=== PATIENT | female | born 1960 | race Caucasian/White ===

== ENCOUNTER 2018-04-25 12:12 | Inpatient (IN) ==
[2018-04-25] MEDS ORDERED: *HR* HYDROmorphone (PF) 1 MG/ML SYRINGE IVP ONE ×2 (13:00→16:04)
[2018-04-25] MEDS ORDERED: 0.9 % Sodium Chloride 1,000 ML IVC ONE ×2 (13:00→16:08)
[2018-04-25] MEDS ORDERED: Isovue-370 500 ML INFUS..BTL IV ONE (13:00)
[2018-04-25] MEDS ORDERED: Ondansetron 4 MG/2 ML VIAL IVP ONE (13:00)
--- NOTE | 2018-04-25 13:08 | Electrocardiograph Report ---
[facility] Test Date: 2018-04-25 Pat Name: Eli Diamond Department: [id number] Room: Gender: F [employer]: : 1960 Requested By: [id number] Order Number: [id number] Reading MD: Paul French Measurements Intervals [place] Rate: 103 P: 30 OR: 129 QRS: 71 QRSD: 85 T: 34 QT: 334 QTc: 438 Interpretive Statements Sinus tachycardia Low voltage, precordial leads Electronically Signed On 04-25-2018 13:06:00 EDT by aPul French
[2018-04-25 13:18] LABS: Basophils # 0.1 K/mcL (0.0-0.2); Basophils % 0.5 %; Eosinophils # 0.1 K/mcL (0.0-0.6); Eosinophils % 0.3 %; Hematocrit 40.2 % (35.3-44.9); Hemoglobin 13.7 g/dL (11.5-15.4); Immature Granulocytes % 2.5 % (0-4); Lymphocytes # 3.8 K/mcL (0.6-4.6); Mean Corpuscular HGB Conc 34.1 g/dL (31.6-35.5); Mean Corpuscular Hemoglobin 31.1 pg (28.0-33.3); Mean Corpuscular Volume 91.4 fL (83.0-100.0); Mean Platelet Volume 9.1 fL (9.4-12.4); Monocytes # 1.5 K/mcL (0.0-1.3); Monocytes % 7.3 %; Neutrophils # 14.9 K/mcL (1.6-8.9); Nucleated Red Blood Cells 0.1 /100 WBC (0); Platelet Count 487 K/mcL (140-400); Red Cell Distribution Width 15.9 % (11.5-14.5); Segmented Neutrophils % 71.4 %
--- NOTE | 2018-04-25 13:23 | Emergency Department Note ---
Disposition Clinical Impression: Pancreatitis Qualifiers: Chronicity: acute Pancreatitis type: unspecified pancreatitis type Acute pancreatitis complication: unspecified Qualified Code(s): K85.90 - Acute pancreatitis without necrosis or infection, unspecified Disposition: Admitted As Inpatient Condition: Good Referrals: Ari Alaniz DO [Primary Care Provider] - Forms: ED Satisfaction Letter, Work/School Release Abdominal Pain HPI - General Chief Complaint: ED Abdominal Pain Stated Complaint: ABD Pain x 2 days Time Seen by Provider: 04/25/18 12:46 Source: patient Mode of arrival: ambulatory Limitations: no limitations Nursing Notes Reviewed: Yes Vital Signs Reviewed: Yes - History of Present Illness HPI Narrative: Patient presents to the emergency department today for evaluation of abdominal pain, nausea, vomiting. Patient has a past mental history including a diagnosis of Salmonella 2 months ago. Patient states that at this time she had significant amounts of diarrhea as well as abdominal pain and cramping and decreased appetite. She was treated with antibiotics and the symptoms did seem to improve. Patient states the last 2 days she started to have increasing epigastric as well as left upper quadrant abdominal pain. Patient states that she has had worsening symptoms with food. Patient has had nausea with multiple episodes of vomiting. Nonbloody nonbilious. The patient states that she has not had any recurrence of her diarrhea. She has had a previous hysterectomy as well as in the past. No previous cholecystectomy or appendectomy. Pain Scale: 8 - Related Data Home Medications Medication Instructions Recorded Confirmed Ergocalciferol (VITAMIN D2) 50,000 unit PO QWEEK 06/13/16 07/13/16 [Vitamin D2] Gabapentin [Neurontin] 800 mg PO TID 06/13/16 07/13/16 Ibuprofen [Motrin] 800 mg PO BID 06/13/16 07/13/16 OxyCODONE/APAP 5/325 [Percocet 1 tab PO Q6HR PRN 06/13/16 07/13/16 5/325 MG] Solifenacin Succinate [Vesicare] 5 mg PO DAILY 06/13/16 07/13/16 Lisinopril [Zestril] 5 mg PO DAILY 07/13/16 07/13/16 hydroCHLOROthiazide 12.5 mg PO DAILY 07/13/16 07/13/16 [Hydrochlorothiazide] Amoxicillin/Clavulanate [Augmentin] 875 mg PO BIDWM 04/25/18 04/25/18 L.acidoph,Paracasei, B.lactis 1 cap PO DAILY 04/25/18 04/25/18 [Probiotic] MethylPREDNISolone 4 mg PO AD 04/25/18 04/25/18 [MethylPREDNISolone Dose Pack] Potassium Chloride [Klor-Con 10] 10 meq PO BID 04/25/18 04/25/18 Previous Rx's Medication Instructions Recorded Ondansetron ODT [Zofran ODT] 4 mg SL Q6HR #10 tab.rapdis 11/15/17 Allergies Allergy/AdvReac Type Severity Reaction Status Date / Time adhesive tape Allergy Hives Verified 11/15/17 16:35 azithromycin [From Zithromax] Allergy Hives Verified 11/15/17 16:35 cephalexin [From Keflex] Allergy Hives Verified 11/15/17 16:35 Erythromycin Base Allergy Swelling Verified 11/15/17 16:35 of Lip/Tongue/Throat Tetracycline AdvReac Gastrointestinal Verified 11/15/17 16:35 Upset Review of Systems: CONSTITUTIONAL: Weakness and fatigue No weight loss, fever, chills HEENT: Eyes: No visual changes. Ears, Nose, Throat: No hearing loss, difficulty talking or unable to swallow. SKIN: No rash or itching. CARDIOVASCULAR: No chest pain, chest pressure or chest discomfort. No palpitations or edema. RESPIRATORY: No shortness of breath, cough or sputum. GASTROINTESTINAL: Abdominal pain with nausea and vomiting. No diarrhea no blood in her stool. N GENITOURINARY: No burning on urination or hematuria. NEUROLOGICAL: No headache, dizziness, syncope, paralysis, ataxia, numbness or tingling in the extremities. No change in bowel or bladder control. MUSCULOSKELETAL: Generalized body aches Abdominal Pain PMH - Past Medical History Medical history: Reports: asthma, hyperlipidemia, hypertension, kidney stones, RA Female Surgical History: Reports: , hysterectomy, orthopedic, other Psychiatric history: Reports: anxiety, depression - Social History Smoking status: Never smoker Alcohol use: Reports: none Drug use: Reports: none Physical Exam General: Patient in discomfort secondary to abdominal pain. Head: Normocephalic Atraumatic Eyes: PERRL, EOMI ENT: Airway patent, no stridor Neck: supple Chest: Lungs clear to auscultation bilateral Cardiac: Regular rhythm Abdomen: soft, tenderness to the epigastric and left upper quadrant region. Patient also has tenderness to the lower abdomen. Guarding to epigastric tenderness. No rebound or CVA tenderness. Musculoskeletal: Generalized pain including the trapezius and generalized back pain Skin: No rash, normal skin tone Neuro: Awake alert and appropriate, conversational. - General Limitations: no limitations General appearance: alert, in no apparent distress Course - Reevaluation(s) Reevaluation #1: Blood work shows an elevated lipase. Significantly elevated white blood cell count. CT scan shows pancreatitis with a large gallbladder. Possible stone. Ultrasound ordered. Patient will be given more pain and nausea medicine as she continues to remain uncomfortable. Patient will be admitted to the hospital service for further evaluation and treatment. Patient does not have elevated bilirubin or hepatic panel. Patient does not have a Ryan sign or specific tenderness to right upper quadrant. - Consultations Consultation #1: Discussed with hospitalist. Pain medications and fluids have been ordered. Ultrasound of the gallbladder has been ordered but will need to be followed up on. Vital Signs Temperature 98.5 F 04/25/18 12:16 Pulse Rate 113 04/25/18 12:16 Respiratory Rate 16 04/25/18 12:16 Blood Pressure 138/91 04/25/18 12:16 O2 Sat by Pulse Oximetry 99 04/25/18 12:16 Temperature 98.5 F 04/25/18 12:31 Pulse Rate 94 04/25/18 14:41 Respiratory Rate 14 04/25/18 14:41 Blood Pressure 125/86 04/25/18 14:41 O2 Sat by Pulse Oximetry 99 04/25/18 14:41 Oxygen Delivery Oxygen Delivery Room Air Abdominal Pain - Lab Data Result diagrams: 04/25/18 12:47 04/25/18 12:47 Lab Results 04/25/18 04/25/18 04/25/18 Range/Units 12:47 12:47 12:47 WBC 20.9 H (4.3-11.1) K/mcL RBC 4.40 (3.82-4.97) M/mcL Hgb 13.7 (11.5-15.4) g/dL Hct 40.2 (35.3-44.9) % MCV 91.4 (83.0-100.0) fL MCH 31.1 (28.0-33.3) pg MCHC 34.1 (31.6-35.5) g/dL RDW 15.9 H (11.5-14.5) % Plt Count 487 H (140-400) K/mcL MPV 9.1 L (9.4-12.4) fL Immature Gran % 2.5 (0-4) % Seg Neutrophils % 71.4 % Lymphocytes % 18.0 % Monocytes % 7.3 % Eosinophils % 0.3 % Basophils % 0.5 % Neutrophils # 14.9 H (1.6-8.9) K/mcL Lymphocytes # 3.8 (0.6-4.6) K/mcL Monocytes # 1.5 H (0.0-1.3) K/mcL Eosinophils # 0.1 (0.0-0.6) K/mcL Basophils # 0.1 (0.0-0.2) K/mcL Nucleated RBCs/100 WBC 0.1 H (0) /100 WBC Sodium 137 (136-145) mEq/L Potassium 3.6 (3.5-5.1) mEq/L Chloride 105 (98-107) mEq/L Carbon Dioxide 25 (23-29) mEq/L BUN 18 (6-20) mg/dL Creatinine 0.68 (0.60-1.20) mg/dL Est GFR ( Amer) > 60 (> 60) Est GFR (Non-Af Amer) > 60 (> 60) BUN/Creatinine Ratio 26 (6-26) Glucose 112 H (70-105) mg/dL Calculated Osmolality 287 (280-300) Lactic Acid 1.7 (0.5-2.2) mmol/L Calcium 11.7 H (8.6-10.3) mg/dL Total Bilirubin 0.5 (0.3-1.0) mg/dL Direct Bilirubin 0.1 (0.0-0.2) mg/dL Indirect Bilirubin 0.4 (0.0-1.2) mg/dL AST 11 L (13-39) Units/L ALT 9 (7-52) Units/L Alkaline Phosphatase 78 (34-104) Units/L Serum Total Protein 6.8 (6.4-8.9) g/dL Albumin 4.5 (3.5-5.7) g/dL Globulin 2.3 L (2.4-3.5) g/dL Albumin/Globulin Ratio 2.0 (1.1-2.2) Lipase 266 H (11-82) Units/L Urine Color (Yellow) Urine Clarity (Clear) Urine pH (5.0-8.0) pH Units Ur Specific [place] (1.010-1.025) Urine Protein (Neg-Trace) mg/dL Urine Glucose (UA) (Normal) mg/dL Urine Ketones (Negative) mg/dL Urine Blood (Negative) Urine Nitrite (Negative) Urine Bilirubin (Negative) Urine Urobilinogen (Normal) mg/dL Ur Leukocyte Esterase (Negative) Ur Culture Indicated? (NO) 04/25/18 Range/Units 15:31 WBC (4.3-11.1) K/mcL RBC (3.82-4.97) M/mcL Hgb (11.5-15.4) g/dL Hct (35.3-44.9) % MCV (83.0-100.0) fL MCH (28.0-33.3) pg MCHC (31.6-35.5) g/dL RDW (11.5-14.5) % Plt Count (140-400) K/mcL MPV (9.4-12.4) fL Immature Gran % (0-4) % Seg Neutrophils % % Lymphocytes % % Monocytes % % Eosinophils % % Basophils % % Neutrophils # (1.6-8.9) K/mcL Lymphocytes # (0.6-4.6) K/mcL Monocytes # (0.0-1.3) K/mcL Eosinophils # (0.0-0.6) K/mcL Basophils # (0.0-0.2) K/mcL Nucleated RBCs/100 WBC (0) /100 WBC Sodium (136-145) mEq/L Potassium (3.5-5.1) mEq/L Chloride (98-107) mEq/L Carbon Dioxide (23-29) mEq/L BUN (6-20) mg/dL Creatinine (0.60-1.20) mg/dL Est GFR ( Amer) (> 60) Est GFR (Non-Af Amer) (> 60) BUN/Creatinine Ratio (6-26) Glucose (70-105) mg/dL Calculated Osmolality (280-300) Lactic Acid (0.5-2.2) mmol/L Calcium (8.6-10.3) mg/dL Total Bilirubin (0.3-1.0) mg/dL Direct Bilirubin (0.0-0.2) mg/dL Indirect Bilirubin (0.0-1.2) mg/dL AST (13-39) Units/L ALT (7-52) Units/L Alkaline Phosphatase (34-104) Units/L Serum Total Protein (6.4-8.9) g/dL Albumin (3.5-5.7) g/dL Globulin (2.4-3.5) g/dL Albumin/Globulin Ratio (1.1-2.2) Lipase (11-82) Units/L Urine Color Yellow (Yellow) Urine Clarity Clear (Clear) Urine pH 6.5 (5.0-8.0) pH Units Ur Specific [place] > 1.030 H (1.010-1.025) Urine Protein Negative (Neg-Trace) mg/dL Urine Glucose (UA) Normal (Normal) mg/dL Urine Ketones Negative (Negative) mg/dL Urine Blood Negative (Negative) Urine Nitrite Negative (Negative) Urine Bilirubin Negative (Negative) Urine Urobilinogen Normal (Normal) mg/dL Ur Leukocyte Esterase Negative (Negative) Ur Culture Indicated? NO (NO)
[2018-04-25 13:36] LABS: Alanine Aminotransferase 9 Units/L (7-52); Albumin 4.5 g/dL (3.5-5.7); Alkaline Phosphatase 78 Units/L (34-104); Aspartate Amino Transferase 11 Units/L (13-39); BUN/Creatinine Ratio 26 (6-26); Bilirubin,Direct 0.1 mg/dL (0.0-0.2); Bilirubin,Indirect 0.4 mg/dL (0.0-1.2); Bilirubin,Total 0.5 mg/dL (0.3-1.0); Blood Urea Nitrogen 18 mg/dL (6-20); Calcium 11.7 mg/dL (8.6-10.3); Carbon Dioxide 25 mEq/L (23-29); Chloride 105 mEq/L (98-107); Globulin 2.3 g/dL (2.4-3.5); Glucose 112 mg/dL (70-105); Lipase 266 Units/L (11-82); Osmolality,Calculated 287 (280-300); Potassium 3.6 mEq/L (3.5-5.1); Sodium 137 mEq/L (136-145); Total Protein 6.8 g/dL (6.4-8.9); eGFR For Non-African Americans > 60 (> 60)
[2018-04-25 15:42] LABS: Bilirubin,Urine Negative (Negative); Blood,Urine Negative (Negative); Clarity,Urine Clear (Clear); Color,Urine Yellow (Yellow); Glucose,Urine (UA) Normal (Normal); Ketones,Urine Negative (Negative); Leukocyte Esterase,Urine Negative (Negative); Nitrite,Urine Negative (Negative); PH,Urine 6.5 pH Units (5.0-8.0); Protein,Urine Negative (Neg-Trace); Specific Gravity,Urine > 1.030 (1.010-1.025); Urobilinogen,Urine Normal (Normal)
[2018-04-25] MEDS ORDERED: Metoclopramide 10 MG/2 ML VIAL IVP ONE (16:04)
[2018-04-25] MEDS ORDERED: *HR* Promethazine 25 MG/ML VIAL IVP PRN (16:26)
[2018-04-25] MEDS ORDERED: Naloxone 0.4 MG/ML INJ IVP PRN (16:26)
[2018-04-25] MEDS ORDERED: Acetaminophen 325 MG TABLET PO PRN (16:26)
--- NOTE | 2018-04-25 16:51 | Internal Med History&Physical ---
Date of Encounter: 04/25/18 Time of Encounter: 16:30 Internal Medicine - H&P: HPI Chief complaint: Abdominal pain Admitted From: Emergency Dept Plans for Post Hospital Care: Home History of present illness: Ms. Diamond is a 57 year old female patient with a history of prior episode of pancreatitis who presented to the ER with complaints of acute abdominal pain. Symptoms began 2 days back and have been progressively getting worse. She reports that the pain is in the epigastric region. Worsens with any food that she takes. She has had chronic abdominal pain since she had an episode of Salmonella earlier this year. She states that she was treated at a different medical facility and continued to have positive stool samples for Salmonella and even was diagnosed with Escherichia coli once. She has not had any episodes of diarrhea for the past couple of weeks. She does report some nausea. No fevers or chills. She denies taking alcohol. She does take ibuprofen twice a day. Past Med Surg Social Fam HX - Past Medical History Attestation: Yes The following information was validated with the patient. Source: patient Medical history: asthma, hyperlipidemia, hypertension, kidney stones, RA Additional medical history: Scoliosis Psychiatric history: anxiety, depression - Past Surgical History Surgical History: , hysterectomy, MATTHEW/BSO Additional surgical history: cysto, - Social History Smoking Status: Never smoker Smokeless Tobacco Status: No Alcohol use: none Drug use: none - Family History Father Living Status: Hx Family Cardiac Disorders: Yes Hx Family Respiratory Disorders: No Hx Family Cancer: No Mother Living Status: Hx Family Cardiac Disorders: No Hx Family Respiratory Disorders: Yes Hx Family Cancer: No Internal Medicine - H&P: Meds Ergocalciferol (VITAMIN D2) [Vitamin D2] 50,000 unit PO QWEEK 06/13/16 [History] Gabapentin [Neurontin] 800 mg PO TID 06/13/16 [History] Ibuprofen [Motrin] 800 mg PO BID 06/13/16 [History] OxyCODONE/APAP 5/325 [Percocet 5/325 MG] 1 tab PO Q6HR PRN 06/13/16 [History] Solifenacin Succinate [Vesicare] 5 mg PO DAILY 06/13/16 [History] Lisinopril [Zestril] 5 mg PO DAILY 07/13/16 [History] hydroCHLOROthiazide [Hydrochlorothiazide] 12.5 mg PO DAILY 07/13/16 [History] Ondansetron ODT [Zofran ODT] 4 mg SL Q6HR #10 tab.rapdis 11/15/17 [Rx] Amoxicillin/Clavulanate [Augmentin] 875 mg PO BIDWM 04/25/18 [History] L.acidoph,Paracasei, B.lactis [Probiotic] 1 cap PO DAILY 04/25/18 [History] MethylPREDNISolone [MethylPREDNISolone Dose Pack] 4 mg PO AD 04/25/18 [History] Potassium Chloride [Klor-Con 10] 10 meq PO BID 04/25/18 [History] 3 Allergy/AdvReac Type Severity Reaction Status Date / Time adhesive tape Allergy Hives Verified 11/15/17 16:35 azithromycin [From Zithromax] Allergy Hives Verified 11/15/17 16:35 cephalexin [From Keflex] Allergy Hives Verified 11/15/17 16:35 Erythromycin Base Allergy Swelling Verified 11/15/17 16:35 of Lip/Tongue/Throat Tetracycline AdvReac Gastrointestinal Verified 11/15/17 16:35 Upset All Systems PM: A 10-system review of systems was performed and is negative for pertinent findings except as documented above in the HPI. - Constitutional Constitutional: malaise, no chills, no fever(s), no night sweats - EENT Eyes: no change in vision, no discharge, no pain, no photophobia Ears: no ear discharge, no ear pain, no tinnitus Nose, mouth and throat: no dysphagia, no nasal discharge, no neck pain, no sore throat - Cardiovascular Cardiovascular ROS IM: no chest pain, no diaphoresis, no dyspnea, no lightheadedness, no palpitations, no syncope - Respiratory Respiratory: no cough, no dyspnea, no wheezing, no excessive phlegm production - Gastrointestinal Gastrointestinal: abdominal pain, nausea, vomiting, no diarrhea, no hematemesis , no hematochezia, no melena - Genitourinary Genitourinary: no change in urinary stream, no dysuria, no flank pain, no hematuria - Musculoskeletal Musculoskeletal ROS IM: no numbness, no tingling - Integumentary Integumentary IM: no rash, no unusual bruising - Neurological Neurological ROS: no confusion, no convulsions, no focal weakness, no numbness, no tingling, no tremor(s) - Hematologic/Lymphatic Hematologic/Lymphatic: no easy bruising - Constitutional Vitals: Temp Pulse Resp BP Pulse Ox 98.5 F 94 14 125/86 99 04/25/18 12:31 04/25/18 14:41 04/25/18 14:41 04/25/18 14:41 04/25/18 14:41 General appearance: Present: cooperative, A&O X 3, answers questions appropriately Exam: Moderate distress - Neck Neck exam general surgery: Present: supple, trachea midline. Absent: lymphadenopathy - Respiratory Respiratory exam: Present: CTAB. Absent: accessory muscle use, rales, rhonchi, wheezes - Cardiovascular Cardiovascular exam: Present: RRR, +S1, +S2. Absent: diastolic murmur, gallop, rubs, systolic murmur - GI/Abdominal GI/Abdominal exam: Present: normal bowel sounds, soft, tenderness (Epigastric), no peritoneal signs. Absent: distended - Extremities Exam Extremities exam: Present: warm, radial pulses palpable and symmetrical. Absent : calf tenderness, cyanotic, pedal edema - Neurological Exam Neurological exam: Present: alert, CN II-XII intact, oriented X3, no focal deficits. Absent: facial droop, speech deficit - Skin Skin exam: Present: dry, intact Internal Med - H&P Results - Labs CBC & Chem 7: 04/25/18 12:47 04/25/18 12:47 Labs: Short CBC 04/25/18 Range/Units 12:47 WBC 20.9 H (4.3-11.1) K/mcL Hgb 13.7 (11.5-15.4) g/dL Hct 40.2 (35.3-44.9) % Plt Count 487 H (140-400) K/mcL Neutrophils # 14.9 H (1.6-8.9) K/mcL BMP 04/25/18 12:47 Sodium 137 Potassium 3.6 Chloride 105 Carbon Dioxide 25 BUN 18 Creatinine 0.68 Glucose 112 H Calcium 11.7 H Liver Function 04/25/18 Range/Units 12:47 Total Bilirubin 0.5 (0.3-1.0) mg/dL Direct Bilirubin 0.1 (0.0-0.2) mg/dL AST 11 L (13-39) Units/L ALT 9 (7-52) Units/L Alkaline Phosphatase 78 (34-104) Units/L Albumin 4.5 (3.5-5.7) g/dL Urine 04/25/18 Range/Units 15:31 Urine Color Yellow (Yellow) Urine Clarity Clear (Clear) Urine pH 6.5 (5.0-8.0) pH Units Ur Specific [place] > 1.030 H (1.010-1.025) Urine Protein Negative (Neg-Trace) mg/dL Urine Glucose (UA) Normal (Normal) mg/dL - Impressions ITS Impressions Abdomen/Pelvis CT 04/25/18 13:00 IMPRESSION: 1. Findings suggestive of changes of mild pancreatitis. 2. Distended gallbladder with findings suggestive of presence of cholelithiasis. 3. Dilatation of central/extrahepatic biliary tree with possible stone within the distal common bile duct. Follow-up MRCP may be helpful for more complete evaluation. 4. Mild prominence of mural thickness of portion of the duodenum adjacent to the pancreatic head. Finding could be related to reactive changes associated with suspected changes of pancreatitis. D/ / 04/25/2018 15:49:03 Praveen Louis MD / claudy Interpreting Provider: Praveen Louis MD - Assessment and plan (1) Pancreatitis Current Visit: Yes Status: Suspected Assessment and plan: Patient has acute pancreatitis with elevated lipase. CT scan findings confirm this. Patient does appear to have cholelithiasis which could be causing her pancreatitis. Will consult surgery. Get ultrasound of the gallbladder. There is questionable bile duct dilatation. Recommended MRCP by radiology. Will discuss with surgery and not to order this test if needed. Keep nothing by mouth. IV fluids. Pain control. High risk for complications. Qualifiers: Chronicity: acute Pancreatitis type: biliary Acute pancreatitis complication: no infection or necrosis Qualified Code(s): K85.10 - Biliary acute pancreatitis without necrosis or infection (2) Essential hypertension Current Visit: Yes Status: Chronic Assessment and plan: Continue lisinopril. (3) DVT prophylaxis Current Visit: Yes Status: Acute Assessment and plan: With subcutaneous heparin - Time Spent With Patient Total time spent is greater than 50% in coordination of care (as documented) at patient's floor/unit and/or counseling patient:
[2018-04-25] MEDS: Gabapentin 400 MG CAPSULE PO SCH (19:19)
[2018-04-25] MEDS: Ringers Solution, Lactated 1,000 ML IVC SCH (19:19)
[2018-04-25] MEDS: Ondansetron ODT 4 MG TAB.RAPDIS SL SCH (19:19)
[2018-04-25] MEDS: OXYCODONE Oral CONC 10 MG/0.5 ML ORAL.SYG SL PRN ×2 (19:51→23:46)
[2018-04-26] MEDS: Ondansetron ODT 4 MG TAB.RAPDIS SL SCH ×5 (01:18→23:14)
[2018-04-26] MEDS: OXYCODONE Oral CONC 10 MG/0.5 ML ORAL.SYG SL PRN ×6 (01:19→23:14)
[2018-04-26] MEDS: Ringers Solution, Lactated 1,000 ML IVC SCH ×3 (02:10→18:38)
[2018-04-26 05:31] LABS: Basophils # 0.1 K/mcL (0.0-0.2); Basophils % 0.4 %; Eosinophils # 0.2 K/mcL (0.0-0.6); Eosinophils % 1.8 %; Hematocrit 31.9 % (35.3-44.9); Immature Granulocytes % 1.8 % (0-4); Lymphocytes # 4.4 K/mcL (0.6-4.6); Lymphocytes % 35.1 %; Mean Corpuscular HGB Conc 33.2 g/dL (31.6-35.5); Mean Corpuscular Hemoglobin 31.3 pg (28.0-33.3); Mean Corpuscular Volume 94.1 fL (83.0-100.0); Mean Platelet Volume 9.3 fL (9.4-12.4); Monocytes # 0.9 K/mcL (0.0-1.3); Monocytes % 6.8 %; Neutrophils # 6.8 K/mcL (1.6-8.9); Nucleated Red Blood Cells 0.2 /100 WBC (0); Platelet Count 294 K/mcL (140-400); Red Blood Count 3.39 M/mcL (3.82-4.97); Red Cell Distribution Width 15.8 % (11.5-14.5); Segmented Neutrophils % 54.1 %
[2018-04-26 05:36] LABS: Hemoglobin 10.6 g/dL (11.5-15.4)
[2018-04-26 06:11] LABS: BUN/Creatinine Ratio 19 (6-26); Blood Urea Nitrogen 11 mg/dL (6-20); Calcium 10.1 mg/dL (8.6-10.3); Carbon Dioxide 24 mEq/L (23-29); Chloride 113 mEq/L (98-107); Glucose 87 mg/dL (70-105); Osmolality,Calculated 291 (280-300); Potassium 3.7 mEq/L (3.5-5.1); Sodium 141 mEq/L (136-145); eGFR For Non-African Americans > 60 (> 60)
--- NOTE | 2018-04-26 06:49 | General Surgery Consult Note ---
Date of Encounter: 04/26/18 Time of Encounter: 06:25 Assessment and Plan (1) Gallstone pancreatitis Current Visit: Yes Status: Acute The patient has recurrent gallstone pancreatitis. Her white blood cell count has dropped from 20,000-12,000 and her lipase is 266. I am concerned that she has persistent dilatation of the bile duct. She will require laparoscopic cholecystectomy to address the source of the stones as well as cholangiogram to evaluate the common bile duct for presence of persistent choledocholithiasis. We will plan on laparoscopic cholecystectomy, cholangiogram later today. History of Present Illness Consult date: 04/26/18 Reason for consult: abdominal pain History of present illness: The patient is admitted with gallstone pancreatitis. She had severe epigastric pain radiating through to her back for several days prior to evaluation emergency room. She was found to have pancreatitis by CAT scan. This is her second bout of pancreatitis this year. A follow-up ultrasound demonstrated cholelithiasis. Her white blood cell count was initially 20,900 and has dropped to 12,000 with appropriate hydration. Her presenting lipase is 266. She is currently receiving antibiotic therapy. Findings are consistent with recurrent gallstone pancreatitis I personally reviewed the ultrasound films and previous CT. Findings are consistent with gallstone pancreatitis. I examined the patient this morning and she continues to have moderate to severe epigastric discomfort likely associated with resolving pancreatitis I have recommended laparoscopic cholecystectomy, cholangiogram to evaluate the common bile duct for any persistent choledocholithiasis Past Med Surg Social Fam HX - Past Medical History Medical history: asthma, hyperlipidemia, hypertension, kidney stones, RA Additional medical history: Scoliosis Psychiatric history: anxiety, depression - Past Surgical History Surgical History: , hysterectomy, MATTHEW/BSO Additional surgical history: cysto, - Social History Smoking Status: Never smoker Smokeless Tobacco Status: No Alcohol use: none Drug use: none - Family History Father Living Status: Hx Family Cardiac Disorders: Yes Hx Family Respiratory Disorders: No Hx Family Cancer: No Mother Adopted: [place]: Kimi Sanchez Family Member Ethnicity: Non- Living Status: Age at : 72 Hx Family Cardiac Disorders: No Hx Family Respiratory Disorders: Yes Hx Family Cancer: No Hx Family GI Disorders: Yes (c-diff, cause of ) Medications and Allergies Ergocalciferol (VITAMIN D2) [Vitamin D2] 50,000 unit PO QWEEK 06/13/16 [History] Gabapentin [Neurontin] 800 mg PO TID 06/13/16 [History] Ibuprofen [Motrin] 800 mg PO BID 06/13/16 [History] OxyCODONE/APAP 5/325 [Percocet 5/325 MG] 1 tab PO Q6HR PRN 06/13/16 [History] Solifenacin Succinate [Vesicare] 5 mg PO DAILY 06/13/16 [History] Lisinopril [Zestril] 5 mg PO DAILY 07/13/16 [History] hydroCHLOROthiazide [Hydrochlorothiazide] 12.5 mg PO DAILY 07/13/16 [History] Ondansetron ODT [Zofran ODT] 4 mg SL Q6HR #10 tab.rapdis 11/15/17 [Rx] Amoxicillin/Clavulanate [Augmentin] 875 mg PO BIDWM 04/25/18 [History] L.acidoph,Paracasei, B.lactis [Probiotic] 1 cap PO DAILY 04/25/18 [History] MethylPREDNISolone [MethylPREDNISolone Dose Pack] 4 mg PO AD 04/25/18 [History] Potassium Chloride [Klor-Con 10] 10 meq PO BID 04/25/18 [History] 3 Allergy/AdvReac Type Severity Reaction Status Date / Time adhesive tape Allergy Hives Verified 11/15/17 16:35 azithromycin [From Zithromax] Allergy Hives Verified 11/15/17 16:35 cephalexin [From Keflex] Allergy Hives Verified 11/15/17 16:35 Erythromycin Base Allergy Swelling Verified 11/15/17 16:35 of Lip/Tongue/Throat Tetracycline AdvReac Gastrointestinal Verified 11/15/17 16:35 Upset Review of Systems All systems PM: The remainder of the systems were reviewed and are negative General Surgery Exam Initial Vital Signs Temp Pulse Resp BP Pulse Ox 98.5 F 113 16 138/91 99 04/25/18 12:16 04/25/18 12:16 04/25/18 12:16 04/25/18 12:16 04/25/18 12:16 - General physical appearance well developed, well nourished, moderate pain - Neck no masses, no bruits, trachea midline, no lymphadectomy, no venous distension - Respiratory normal expansion, normal respiratory effort, clear to percussion, clear to auscultation - Cardiovascular Cardiovascular exam: Present: RRR, regular rhythm, no murmurs/rubs/gallops - Abdomen Abdomen general surgery: Present: guarding (The patient has epigastric involuntary guarding with no evidence of Ryan sign) Abdominal Tenderness: Present: epigastic - Integumentary Integumentary general surgery: Present: warm and dry, no abnormal pigmentation, other (No evidence of jaundice) - Neurologic Present: CN 2-12 grossly intact, normal coordination, normal sensation - Psychiatric Psychiatric general surgery: Present: appropriate, oriented to person, oriented to place, oriented to time, speech is normal, memory intact Exam Initial Vital Signs Temp Pulse Resp BP Pulse Ox 98.5 F 113 16 138/91 99 04/25/18 12:16 04/25/18 12:16 04/25/18 12:16 04/25/18 12:16 04/25/18 12:16 Results - Labs 04/26/18 05:09 04/26/18 05:09 Abnormal lab results WBC 12.6 K/mcL (4.3-11.1) H 04/26/18 05:09 RBC 3.39 M/mcL (3.82-4.97) L 04/26/18 05:09 Hgb 10.6 g/dL (11.5-15.4) L D 04/26/18 05:09 Hct 31.9 % (35.3-44.9) L 04/26/18 05:09 RDW 15.8 % (11.5-14.5) H 04/26/18 05:09 MPV 9.3 fL (9.4-12.4) L 04/26/18 05:09 Nucleated RBCs/100 WBC 0.2 /100 WBC (0) H 04/26/18 05:09 Chloride 113 mEq/L (98-107) H 04/26/18 05:09 Creatinine 0.59 mg/dL (0.60-1.20) L 04/26/18 05:09 AST 11 Units/L (13-39) L 04/25/18 12:47 Globulin 2.3 g/dL (2.4-3.5) L 04/25/18 12:47 Lipase 266 Units/L (11-82) H 04/25/18 12:47 Ur Specific [place] > 1.030 (1.010-1.025) H 04/25/18 15:31 Diabetes panel 04/26/18 Range/Units 05:09 Sodium 141 (136-145) mEq/L Potassium 3.7 (3.5-5.1) mEq/L Chloride 113 H (98-107) mEq/L Carbon Dioxide 24 (23-29) mEq/L BUN 11 (6-20) mg/dL Creatinine 0.59 L (0.60-1.20) mg/dL Glucose 87 (70-105) mg/dL Calcium 10.1 (8.6-10.3) mg/dL Calcium panel 04/26/18 Range/Units 05:09 Calcium 10.1 (8.6-10.3) mg/dL Pituitary panel 04/26/18 Range/Units 05:09 Sodium 141 (136-145) mEq/L Potassium 3.7 (3.5-5.1) mEq/L Chloride 113 H (98-107) mEq/L Carbon Dioxide 24 (23-29) mEq/L BUN 11 (6-20) mg/dL Creatinine 0.59 L (0.60-1.20) mg/dL Glucose 87 (70-105) mg/dL Calcium 10.1 (8.6-10.3) mg/dL Adrenal panel 04/26/18 Range/Units 05:09 Sodium 141 (136-145) mEq/L Potassium 3.7 (3.5-5.1) mEq/L Chloride 113 H (98-107) mEq/L Carbon Dioxide 24 (23-29) mEq/L BUN 11 (6-20) mg/dL Creatinine 0.59 L (0.60-1.20) mg/dL Glucose 87 (70-105) mg/dL Calcium 10.1 (8.6-10.3) mg/dL All other labs normal. - Imaging CT scan - abdomen: image reviewed (I personally reviewed the CAT scan of the abdomen. Findings are consistent with acute pancreatitis involving the pancreatic head. She has dilatation of the bile duct system which may represent choledocholithiasis. We will plan a cholangiogram during cholecystectomy to evaluate common bile duct. Gallbladder was quite distended.) US - abdomen: image reviewed (I personally reviewed the ultrasound images. Findings are consistent with cholelithiasis) Consult Discharge Plan - Plan Referrals: Ari Alaniz, DO [Primary Care Provider] -
[2018-04-26 08:10] LABS: Lipase 84 Units/L (11-82)
[2018-04-26] MEDS ORDERED: hydroCHLOROthiazide 25 MG TABLET PO SCH (09:00)
[2018-04-26] MEDS ORDERED: Lactobacillus 1 EACH CAP.SPRINK PO SCH (09:00)
--- NOTE | 2018-04-26 11:12 | Internal Med Progress Note ---
Hospitalist Progress Note - Encounter Date of Encounter: 04/26/18 Time of Encounter: 08:50 - Subjective Interval History: Patient continues to have epigastric abdominal pain. No significant improvement. No new episodes of fevers or chills. Does have nausea. No diarrhea. - Exam Vitals: Temp Pulse Resp BP Pulse Ox 98.1 F 83 16 152/80 97 04/26/18 10:59 04/26/18 10:59 04/26/18 10:59 04/26/18 10:59 04/26/18 10:59 Exam: General: Patient is alert, mild distress, oriented x 3 Respiratory: Good respiratory effort. Normal breath sounds. No wheezing or crackles. Cardiovascular: Regular rate and rhythm. s1 and s2 normal No clicks, rubs, gallops, or murmurs. No pedal edema Abdomen: Abdomen is soft, epigastric tenderness. Bowel sounds are present Musculoskeletal: Spontaneously moving all extremities Skin: warm, dry, intact. Neuro: Alert oriented x 3 normal cranial nerves, no focal deficits - Assessment and Plan (1) Pancreatitis Current Visit: Yes Status: Acute Assessment and Plan: Patient with acute biliary pancreatitis. Gallbladder ultrasound confirms findings of cholelithiasis. MRI of the abdomen showed dilated common bile duct but no definite filling defect. Surgery consulted. Lipase trending down. Plan for laparoscopic cholecystectomy with intraoperative cholangiogram later today. Moderate risk for complications. Keep nothing by mouth. IV fluids. Pain control. Antiemetics. (2) Essential hypertension Current Visit: Yes Status: Chronic Assessment and Plan: Blood pressure fairly controlled. Continue lisinopril and hydrochlorothiazide. (3) DVT prophylaxis Current Visit: Yes Status: Acute Assessment and Plan: Patient ambulating. We will also place on subcutaneous heparin post surgery. - Time Spent with Patient Total time spent is greater than 50% in coordination of care (as documented) at patient's floor/unit and/or counseling patient: Internal Medicine: Result - Labs CBC & Chem 7: 04/26/18 05:09 04/26/18 05:09 Labs: Short CBC 04/26/18 Range/Units 05:09 WBC 12.6 H (4.3-11.1) K/mcL Hgb 10.6 L D (11.5-15.4) g/dL Hct 31.9 L (35.3-44.9) % Plt Count 294 (140-400) K/mcL Neutrophils # 6.8 (1.6-8.9) K/mcL BMP 04/26/18 05:09 Sodium 141 Potassium 3.7 Chloride 113 H Carbon Dioxide 24 BUN 11 Creatinine 0.59 L Glucose 87 Calcium 10.1 - Impressions Impressions Abdomen MRI 04/25/18 17:06 IMPRESSION: Cholelithiasis without signs of acute cholecystitis. Common bile duct is dilated. No definite filling defect is seen. Findings may indicate a recently passed calculus or be related to the pancreatic process. Recommend follow-up versus ERCP. Acute pancreatitis without complication. D/ / 04/25/2018 18:58:38 Bayron Weinberg MD / lito Interpreting Provider: Bayron Weinberg MD Consult Discharge Plan - Plan Referrals: Ari Alaniz, [Primary Care Provider] - (1) Pancreatitis Qualifiers: Chronicity: acute Pancreatitis type: biliary Acute pancreatitis complication : no infection or necrosis Qualified Code(s): K85.10 - Biliary acute pancreatitis without necrosis or infection
[2018-04-26] MEDS: Gabapentin 400 MG CAPSULE PO SCH ×2 (11:43→19:51)
--- NOTE | 2018-04-26 13:22 | Anesthesia Evaluation PreOp ---
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: Other (scoliosis, anxiety/depression) Other Medical History: Renal (kidney stones), Other (pancreatitis) Anesthesia History: No Prior Anesthetic Complications, Past Anesthesia (C/S, MATTHEW , cystoscopy) Alcohol Use: none Drug use: none Medications and Allergies Ergocalciferol (VITAMIN D2) [Vitamin D2] 50,000 unit PO QWEEK 06/13/16 [History] Gabapentin [Neurontin] 800 mg PO TID 06/13/16 [History] Ibuprofen [Motrin] 800 mg PO BID 06/13/16 [History] OxyCODONE/APAP 5/325 [Percocet 5/325 MG] 1 tab PO Q6HR PRN 06/13/16 [History] Solifenacin Succinate [Vesicare] 5 mg PO DAILY 06/13/16 [History] Lisinopril [Zestril] 5 mg PO DAILY 07/13/16 [History] hydroCHLOROthiazide [Hydrochlorothiazide] 12.5 mg PO DAILY 07/13/16 [History] Ondansetron ODT [Zofran ODT] 4 mg SL Q6HR #10 tab.rapdis 11/15/17 [Rx] Amoxicillin/Clavulanate [Augmentin] 875 mg PO BIDWM 04/25/18 [History] L.acidoph,Paracasei, B.lactis [Probiotic] 1 cap PO DAILY 04/25/18 [History] MethylPREDNISolone [MethylPREDNISolone Dose Pack] 4 mg PO AD 04/25/18 [History] Potassium Chloride [Klor-Con 10] 10 meq PO BID 04/25/18 [History] 3 Allergy/AdvReac Type Severity Reaction Status Date / Time adhesive tape Allergy Hives Verified 11/15/17 16:35 azithromycin [From Zithromax] Allergy Hives Verified 11/15/17 16:35 cephalexin [From Keflex] Allergy Hives Verified 11/15/17 16:35 Erythromycin Base Allergy Swelling Verified 11/15/17 16:35 of Lip/Tongue/Throat Tetracycline AdvReac Gastrointestinal Verified 11/15/17 16:35 Upset - Meds/Allergy Pre-op Review Medications Reviewed: Yes Allergies Reviewed: Yes Beta Blockers on Current Med List: No Anesthesia Results - Labs 04/26/18 05:09 04/26/18 05:09 Anesthesia Exam Selected Entries 04/26/18 10:59 Temperature 98.1 F Pulse Rate 83 Respiratory Rate 16 Blood Pressure 152/80 O2 Sat by Pulse Oximetry 97 Oxygen Flow Rate (LPM) 2 Oxygen Delivery Method Nasal Cannula Weight: 68kg NPO (# of Hours): 8 - HEENT Pupil (Motor): EOMI Mallampati: II Teeth: Missing, Poor dentition (broken and loose lower front incisiors) Oral Opening: Greater than 3 - TIN CONTAINER STRAIGHTENER LOC: Oriented TIN CONTAINER STRAIGHTENER Motor: Normal RUE, Normal LUE, Normal RLE, Normal LLE, Normal Face TIN CONTAINER STRAIGHTENER Sensory: Normal: RUE, LUE, RLE, LLE, Face - Cardiac Rhythm: Regular Murmur: None - Pulmonary Breath Sounds: bilateral Clear Respiratory Effort: Symmetrical Anesthesia Assess/Plan ASA Score: 2 Modified [place] Scale for Level of Consciousness: Cooperative, oriented, and tranquil Anesthetic Plan: General Monitoring Plan: Standard Monitors Recovery Plan: PACU (agrees to GA)
[2018-04-26] MEDS ORDERED: Dexamethasone 4 MG/ML VIAL ONE (13:29)
[2018-04-26] MEDS ORDERED: Lidocaine -MPF 2% 2 ML VIAL ONE (13:29)
[2018-04-26] MEDS ORDERED: Ondansetron 4 MG/2 ML VIAL ONE (13:29)
[2018-04-26] MEDS ORDERED: *HR* FentaNYL (PF) 100 MCG/2 ML VIAL ONE ×2 (13:29→14:19)
[2018-04-26] MEDS ORDERED: *HR* Propofol 200 MG/20 ML VIAL IVP ONE (13:30)
[2018-04-26] MEDS ORDERED: *HR* Midazolam HCl 2 MG/2 ML VIAL ONE (13:30)
[2018-04-26] MEDS ORDERED: Neostigmine Methylsulfate 3 MG/3 ML SYRINGE ONE (13:32)
[2018-04-26] MEDS ORDERED: Lidocaine -MPF 4% 5 ML AMPUL ONE (13:32)
[2018-04-26] MEDS ORDERED: Ondansetron 4 MG/2 ML VIAL IVP ONE (13:53)
[2018-04-26] MEDS ORDERED: *HR* Morphine 2 MG/ML SYRINGE IVP PRN (13:53)
[2018-04-26] MEDS ORDERED: Naloxone 0.4 MG/ML INJ IVP PRN ×2 (13:53→15:42)
[2018-04-26] MEDS ORDERED: *HR* Meperidine 25 MG/ML SYRINGE IVP PRN (13:53)
[2018-04-26] MEDS ORDERED: Albuterol 2.5 MG/3 ML NEBULIZER IH ONE (13:53)
[2018-04-26] MEDS ORDERED: *HR* Promethazine 25 MG/ML VIAL IVP PRN ×2 (13:53→15:42)
[2018-04-26] MEDS ORDERED: Water for inj. (sterile) 10 ML IV ONE (13:56)
[2018-04-26] MEDS ORDERED: Ringers Solution, Lactated 1,000 ML IVC SCH (14:00)
[2018-04-26] MEDS ORDERED: cefOXitin 2,000 MG in Water for inj. (sterile) 20 ML 20 ML IVP ONE (14:10)
[2018-04-26] MEDS ORDERED: cefOXitin 1,000 MG in 0.9 % Sodium Chloride Mini Bag 100 ML IR ONE (14:10)
--- NOTE | 2018-04-26 14:58 | Operative Note ---
Date of procedure: 04/26/18 Pre-op diagnosis: Gallstone pancreatitis Post-op diagnosis: same Procedure: Laparoscopic cholecystectomy, cholangiogram Anesthesia: DEEPTI Surgeon: Bunny Harper Was there an learning and development assistant present: No Estimated blood loss (cc): 10 Specimen: Gallbladder and contents Condition: stable Disposition: PACU Procedure in Detail: Laparoscopic cholecystectomy and intraoperative cholangiogram Operative procedure after informed consent and appropriate patient identification timeout the patient was taken to the major operating suite and placed supine position given adequate general endotracheal anesthesia the abdomen is prepped and draped in sterile fashion utilizing ChloraPrep standard draping techniques timeout was taken patient is identified. I made a vertical midline incision below the umbilicus dissected down to level of fascia there are 2 traction stitches placed in the abdominal cavity was entered visually. A Najera trocar was placed in the abdomen and the abdomen was insufflated to 15 mmHg pressure CO2 the gallbladder was visualized. A placement 11 port in the subxiphoid area and 2 5 mm ports in the subcostal area. The gallbladder was grasped and elevated. A variety of blunt and sharp dissection techniques were used to isolate the cystic duct and cystic artery. The cystic artery was controlled with 2 surgical clips proximally and one distally and it was divided I placed a surgical clip on the neck the gallbladder and obtained an intraoperative cholangiogram using 10 mL of Isovue. Intraoperative cholangiogram was normal. The cholangiocatheter was removed and the cystic duct was controlled with 2 surgical clips proximally and was divided the gallbladder was removed from the gallbladder fossae using electrocautery. The gallbladder was removed through the #11 port site. I replaced the #11 port and irrigated with copious amounts of antibiotic containing solution. There is no evidence of bleeding or bile leak. All trochars were removed. Fascia was closed with 0 Vicryl skin with 2-0 and 4-0 Vicryl he tolerated the procedure well and was transferred to recovery in stable condition
[2018-04-26] MEDS ORDERED: Acetaminophen 325 MG TABLET PO PRN (15:42)
--- NOTE | 2018-04-26 15:49 | Anesthesia Evaluation Post Op ---
Date of Encounter: 04/26/18 Time of Encounter: 15:48 - Vital Signs Vital Signs: Selected Entries 04/26/18 15:37 Temperature 97.8 F Pulse Rate 90 O2 Sat by Pulse Oximetry 92 - Lungs Lungs: Clear Ascult./Percussion - Airway Airway: Non-obstructed - Cardiovascular Regular Rate - Mental Status Mental Status: Alert & Oriented, Answers Appropriately - Pain Pain Scale: 3 Pain Scale used: Numeric (1 - 10) - Nausea Vomiting Nausea Vomiting: Not Present - Hydration Hydration: Tolerates oral liquids, Has not voided - Discharge PostOp Status: Transfer Patient to floor
[2018-04-26] MEDS: *HR* Heparin 5,000 UNIT/ML VIAL SQ SCH (17:20)
[2018-04-26] MEDS ORDERED: *HR* Heparin 5,000 UNIT/ML VIAL SQ SCH (18:00)
[2018-04-27] MEDS: Ringers Solution, Lactated 1,000 ML IVC SCH (04:06)
[2018-04-27] MEDS: OXYCODONE Oral CONC 10 MG/0.5 ML ORAL.SYG SL PRN ×2 (04:07→09:57)
[2018-04-27 04:29] LABS: Basophils % 0.2 %; Hematocrit 33.8 % (35.3-44.9); Hemoglobin 11.3 g/dL (11.5-15.4); Immature Granulocytes % 1.9 % (0-4); Lymphocytes # 1.6 K/mcL (0.6-4.6); Lymphocytes % 16.2 %; Mean Corpuscular HGB Conc 33.4 g/dL (31.6-35.5); Mean Corpuscular Hemoglobin 31.7 pg (28.0-33.3); Mean Corpuscular Volume 94.9 fL (83.0-100.0); Mean Platelet Volume 9.4 fL (9.4-12.4); Monocytes # 0.4 K/mcL (0.0-1.3); Monocytes % 3.9 %; Neutrophils # 7.8 K/mcL (1.6-8.9); Platelet Count 322 K/mcL (140-400); Red Blood Count 3.56 M/mcL (3.82-4.97); Red Cell Distribution Width 15.2 % (11.5-14.5); Segmented Neutrophils % 77.8 %
[2018-04-27 04:49] LABS: Alanine Aminotransferase 20 Units/L (7-52); Albumin 3.8 g/dL (3.5-5.7); Albumin/Globulin Ratio 2.1 (1.1-2.2); Alkaline Phosphatase 63 Units/L (34-104); Aspartate Amino Transferase 29 Units/L (13-39); BUN/Creatinine Ratio 16 (6-26); Bilirubin,Total 0.4 mg/dL (0.3-1.0); Blood Urea Nitrogen 9 mg/dL (6-20); Calcium 10.4 mg/dL (8.6-10.3); Carbon Dioxide 26 mEq/L (23-29); Chloride 108 mEq/L (98-107); Globulin 1.8 g/dL (2.4-3.5); Glucose 110 mg/dL (70-105); Osmolality,Calculated 291 (280-300); Potassium 4.1 mEq/L (3.5-5.1); Sodium 141 mEq/L (136-145); Total Protein 5.6 g/dL (6.4-8.9); eGFR For Non-African Americans > 60 (> 60)
[2018-04-27] MEDS: *HR* Heparin 5,000 UNIT/ML VIAL SQ SCH (06:05)
[2018-04-27] MEDS: Ondansetron ODT 4 MG TAB.RAPDIS SL SCH (06:06)
[2018-04-27 07:12] VITALS: BP 157/90
--- NOTE | 2018-04-27 08:41 | General Surgery Progress Note ---
<Betina Brownlee Tarah - Last Filed: 04/27/18 08:38> Date of Encounter: 04/27/18 Time of Encounter: 07:30 - Assessment and Plan (1) Gallstone pancreatitis Current Visit: Yes Status: Acute Postoperative day #1 uncomplicated laparoscopic cholecystectomy with unremarkable intraoperative choliangiogram on 04/26/[address] Harper. Pathology remains pending. She is progressed as expected. She is tolerating a diet without nausea or vomiting, ambulating and voiding, abdominal discomfort is controlled. She is stable for discharge from a surgical standpoint per the primary team with a follow-up in the office in approximately 2 weeks. Subjective Patient reports: no new complaints, feels better, still having pain, pain is less, tolerating liquids well, voiding w/o difficulty, flatus, no bowel movement , afebrile Objective Vital Signs - Last 8 Hours Temp Pulse Resp BP Pulse Ox 04/27/18 06:54 97.6 F 82 14 157/90 100 04/27/18 04:11 98.1 F 75 16 138/82 100 Intake and Output 04/26/18 04/27/18 04/27/18 23:59 07:59 15:59 Intake Total 1182 / 1182 818 / 818 Output Total 100 / 100 Balance 1082 / 1082 818 / 818 Intake: IV Fluids 1182 / 1182 818 / 818 Lactated Ringers 1,000 ML @ 150 1182 / 1182 818 / 818 mls/hr IVC .Q6H40M [facility] Rx#: [id number] Oral 0 / 0 Output: Urine 100 / 100 Other: Meal Dinner Percent of Meal Consumed 0% # Voids 1 1 - General physical appearance well nourished, no distress - ENT normal mucosa - Neck Neck exam: trachea midline - Respiratory normal expansion, normal respiratory effort, clear to auscultation - Cardiovascular Cardiovascular exam: Present: RRR - Abdomen Abdomen: Present: bowel sounds present, soft, tender (Expected postoperative) Hernia: none - Incision Incision: Present: clean and dry, intact - Integumentary no rash - Neurologic normal coordination, normal sensation - Musculoskeletal normal gait, normal posture - Psychiatric oriented to time, oriented to person, oriented to place, speech is normal, memory intact - Labs 04/27/18 04:03 04/27/18 04:03 Diabetes panel 04/27/18 Range/Units 04:03 Sodium 141 (136-145) mEq/L Potassium 4.1 (3.5-5.1) mEq/L Chloride 108 H (98-107) mEq/L Carbon Dioxide 26 (23-29) mEq/L BUN 9 (6-20) mg/dL Creatinine 0.55 L (0.60-1.20) mg/dL Glucose 110 H (70-105) mg/dL Calcium 10.4 H (8.6-10.3) mg/dL AST 29 (13-39) Units/L ALT 20 (7-52) Units/L Alkaline Phosphatase 63 (34-104) Units/L Albumin 3.8 (3.5-5.7) g/dL Calcium panel 04/27/18 Range/Units 04:03 Calcium 10.4 H (8.6-10.3) mg/dL Albumin 3.8 (3.5-5.7) g/dL Pituitary panel 04/27/18 Range/Units 04:03 Sodium 141 (136-145) mEq/L Potassium 4.1 (3.5-5.1) mEq/L Chloride 108 H (98-107) mEq/L Carbon Dioxide 26 (23-29) mEq/L BUN 9 (6-20) mg/dL Creatinine 0.55 L (0.60-1.20) mg/dL Glucose 110 H (70-105) mg/dL Calcium 10.4 H (8.6-10.3) mg/dL Adrenal panel 04/27/18 Range/Units 04:03 Sodium 141 (136-145) mEq/L Potassium 4.1 (3.5-5.1) mEq/L Chloride 108 H (98-107) mEq/L Carbon Dioxide 26 (23-29) mEq/L BUN 9 (6-20) mg/dL Creatinine 0.55 L (0.60-1.20) mg/dL Glucose 110 H (70-105) mg/dL Calcium 10.4 H (8.6-10.3) mg/dL Total Bilirubin 0.4 (0.3-1.0) mg/dL AST 29 (13-39) Units/L ALT 20 (7-52) Units/L Alkaline Phosphatase 63 (34-104) Units/L Albumin 3.8 (3.5-5.7) g/dL Consult Discharge Plan - Plan Instructions: Laparoscopic Cholecystectomy (DC) Additional Instructions: General Surgical Discharge Instructions 1. No pushing, pulling, or lifting greater than 15 lbs for 2-4 weeks (depending upon procedure). 2. You may shower beginning today, but no tub baths, soaking, or swimming for 2 weeks. 3. You may resume driving when you are off narcotics and are safe to react in a car. 4. Take ibuprofen every 8 hours for discomfort. If this does not relieve discomfort, you may take the as needed Percocet. Take narcotics as directed. Do not take more narcotics then directed and do not share your narcotics with any other person. Do not drink alcohol while on narcotics. 5. Take stool softeners (Colace) or a water based laxative (Miralax) while taking narcotics. You may hold for loose stools. 6. Report any fevers greater than 100.5F, increase abdominal discomfort, drainage that looks like pus, increased redness or pain at the surgical site, or any vomiting. 7. Report any pain in the calves, shortness of breath, or rapid heartbeat. 8. Follow-up in the office as directed. 9. If you were prescribed antibiotics, do not stop them without talking to your provider. Referrals: Ari Alaniz DO [Primary Care Provider] - (in 1-2 weeks) Mariposa Ward, TRANSFER WORKER [Advanced Practice Nurse] - 05/11/18 9:30 am Prescriptions: OxyCODONE/APAP 5/325 [Percocet 5/325 MG] 1 each PO Q6HR PRN 7 Days #28 tablet PRN Reason: Pain Docusate Sodium [Colace] 100 mg PO BID PRN #30 capsule PRN Reason: Constipation Famotidine [Pepcid] 20 mg PO BID #30 tablet Ibuprofen 800 mg PO Q8H PRN #60 tablet PRN Reason: Mild Pain <Bunny Harper T - Last Filed: 04/27/18 14:58> Date of Encounter: 04/27/18 - Assessment and Plan (1) Gallstone pancreatitis Current Visit: Yes Status: Acute Objective Intake and Output 04/26/18 04/27/18 04/27/18 23:59 07:59 15:59 Intake Total 1182 / 1182 818 / 818 Output Total 100 / 100 Balance 108 / 1082 818 / 818 Intake: IV Fluids 118 1182 818 / 818 Lactated Ringers 1,000 ML @ 150 118 / 118 818 / 818 mls/hr IVC .Q6H40M [facility] Rx#: [id number] Oral 0 / 0 Output: Urine 100 / 100 Other: Meal Dinner Percent of Meal Consumed 0% # Voids 1 1 1 - Labs 04/27/18 04:03 04/27/18 04:03 Diabetes panel 04/27/18 Range/Units 04:03 Sodium 141 (136-145) mEq/L Potassium 4.1 (3.5-5.1) mEq/L Chloride 108 H (98-107) mEq/L Carbon Dioxide 26 (23-29) mEq/L BUN 9 (6-20) mg/dL Creatinine 0.55 L (0.60-1.20) mg/dL Glucose 110 H (70-105) mg/dL Calcium 10.4 H (8.6-10.3) mg/dL AST 29 (13-39) Units/L ALT 20 (7-52) Units/L Alkaline Phosphatase 63 (34-104) Units/L Albumin 3.8 (3.5-5.7) g/dL Calcium panel 04/27/18 Range/Units 04:03 Calcium 10.4 H (8.6-10.3) mg/dL Albumin 3.8 (3.5-5.7) g/dL Pituitary panel 04/27/18 Range/Units 04:03 Sodium 141 (136-145) mEq/L Potassium 4.1 (3.5-5.1) mEq/L Chloride 108 H (98-107) mEq/L Carbon Dioxide 26 (23-29) mEq/L BUN 9 (6-20) mg/dL Creatinine 0.55 L (0.60-1.20) mg/dL Glucose 110 H (70-105) mg/dL Calcium 10.4 H (8.6-10.3) mg/dL Adrenal panel 04/27/18 Range/Units 04:03 Sodium 141 (136-145) mEq/L Potassium 4.1 (3.5-5.1) mEq/L Chloride 108 H (98-107) mEq/L Carbon Dioxide 26 (23-29) mEq/L BUN 9 (6-20) mg/dL Creatinine 0.55 L (0.60-1.20) mg/dL Glucose 110 H (70-105) mg/dL Calcium 10.4 H (8.6-10.3) mg/dL Total Bilirubin 0.4 (0.3-1.0) mg/dL AST 29 (13-39) Units/L ALT 20 (7-52) Units/L Alkaline Phosphatase 63 (34-104) Units/L Albumin 3.8 (3.5-5.7) g/dL - Attending Attestation I examined this patient and my medical decision-making was reviewed with the Resident Physician. I agree with the documented findings, disposition and treatment plan as described except to the extent set forth below. The patient is seen and evaluated on morning rounds with the resident. The patient has had resolution of her preoperative pain syndrome. She had successful laparoscopic cholecystectomy for gallstone pancreatitis. She should be ready for discharge later today. Bunny Harper MD FACS
[2018-04-27] MEDS: Gabapentin 400 MG CAPSULE PO SCH (08:58)
[2018-04-27] MEDS ORDERED: Lactobacillus 1 EACH CAP.SPRINK PO SCH (09:00)
[2018-04-27] MEDS ORDERED: hydroCHLOROthiazide 25 MG TABLET PO SCH (09:00)
--- NOTE | 2018-04-27 09:19 | Discharge Summary ---
- NOTES TO OUTPATIENT PROVIDER Notes to Outpatient Provider: Patient was hospitalized here with acute gallstone pancreatitis. She was evaluated by surgery and underwent laparoscopic cholecystectomy with intraoperative cholangiogram yesterday. Will stop relatively she is doing well and has been cleared for discharge by surgery. She will follow up with surgery after discharge. Orders not resulted at time of discharge: Pending orders 04/26/18 14:35 Surgical Pathology [PTH] Routine Date of Encounter: 04/27/18 Time of Encounter: 09:17 - Discharge Diagnosis (1) Pancreatitis Priority: Primary Status: Acute Qualifiers: Chronicity: acute Pancreatitis type: biliary Acute pancreatitis complication: no infection or necrosis Qualified Code(s): K85.10 - Biliary acute pancreatitis without necrosis or infection (2) Essential hypertension Priority: Secondary Status: Chronic (3) DVT prophylaxis Priority: Secondary Status: Acute Hospital course: Ms. Diamond is a 57 year old female Patient with history of essential hypertension was hospitalized here with acute gallstone pancreatitis. He was kept nothing by mouth, treated with IV fluids and pain control. She was evaluated by surgery and underwent laparoscopic cholecystectomy with intraoperative cholangiogram yesterday. Will stop relatively she is doing well and has been cleared for discharge by surgery. She will follow up with surgery after discharge. Discharge discussed with: patient, nurse, b2b sales consultant - Time Spent with Patient Total time spent providing and/or coordinating discharge services: Less than 30 minutes (25 min) - Discharge Medications Prescriptions: OxyCODONE/APAP 5/325 [Percocet 5/325 MG] 1 each PO Q6HR PRN 7 Days #28 tablet PRN Reason: Pain Docusate Sodium [Colace] 100 mg PO BID PRN #30 capsule PRN Reason: Constipation Famotidine [Pepcid] 20 mg PO BID #30 tablet Ibuprofen 800 mg PO Q8H PRN #60 tablet PRN Reason: Mild Pain Home Medications: Ergocalciferol (VITAMIN D2) [Vitamin D2] 50,000 unit PO QWEEK 06/13/16 [History] Gabapentin [Neurontin] 800 mg PO TID 06/13/16 [History] Ibuprofen [Motrin] 800 mg PO BID 06/13/16 [History] OxyCODONE/APAP 5/325 [Percocet 5/325 MG] 1 tab PO Q6HR PRN 06/13/16 [History] Solifenacin Succinate [Vesicare] 5 mg PO DAILY 06/13/16 [History] Lisinopril [Zestril] 5 mg PO DAILY 07/13/16 [History] hydroCHLOROthiazide [Hydrochlorothiazide] 12.5 mg PO DAILY 07/13/16 [History] Ondansetron ODT [Zofran ODT] 4 mg SL Q6HR #10 tab.rapdis 11/15/17 [Rx] L.acidoph,Paracasei, B.lactis [Probiotic] 1 cap PO DAILY 04/25/18 [History] MethylPREDNISolone [MethylPREDNISolone Dose Pack] 4 mg PO AD 04/25/18 [History] Potassium Chloride [Klor-Con 10] 10 meq PO BID 04/25/18 [History] Docusate Sodium [Colace] 100 mg PO BID PRN #30 capsule 04/27/18 [Rx] Famotidine [Pepcid] 20 mg PO BID #30 tablet 04/27/18 [Rx] Ibuprofen 800 mg PO Q8H PRN #60 tablet 04/27/18 [Rx] OxyCODONE/APAP 5/325 [Percocet 5/325 MG] 1 each PO Q6HR PRN 7 Days #28 tablet [Rx] Allergies/Adverse Reactions: 3 Allergy/AdvReac Type Severity Reaction Status Date / Time adhesive tape Allergy Hives Verified 11/15/17 16:35 azithromycin [From Zithromax] Allergy Hives Verified 11/15/17 16:35 cephalexin [From Keflex] Allergy Hives Verified 11/15/17 16:35 Erythromycin Base Allergy Swelling Verified 11/15/17 16:35 of Lip/Tongue/Throat Tetracycline AdvReac Gastrointestinal Verified 11/15/17 16:35 Upset Date of admission: 04/25/18 17:02 Primary care physician: Ari Alaniz Consults: 04/25/18 18:44 Consult to Nutrition [CONS] Routine Comment: Consulting Provider: NUTRITION Reason for Dietary Consult: MST Score Discharging clinician: Leeanne Clark Anticipated date of discharge: 04/27/18 - Constitutional Vitals: Temp Pulse Resp BP Pulse Ox 97.6 F 82 14 157/90 100 04/27/18 06:54 04/27/18 06:54 04/27/18 06:54 04/27/18 06:54 04/27/18 06:54 General appearance: Present: cooperative, A&O X 3, answers questions appropriately Exam: General: Patient is alert, mild distress, oriented x 3 Respiratory: Good respiratory effort. Normal breath sounds. No wheezing or crackles. Cardiovascular: Regular rate and rhythm. s1 and s2 normal No clicks, rubs, gallops, or murmurs. No pedal edema Abdomen: Abdomen is soft, mild RUQ tenderness. Bowel sounds are present Musculoskeletal: Spontaneously moving all extremities Skin: warm, dry, intact. Neuro: Alert oriented x 3 normal cranial nerves, no focal deficits - Patient Status Disposition: Home, Self-Care Condition: Good Functional capacity at discharge: independent ambulation Overall status at discharge: patient is progressing back to baseline - Discharge Instructions Instructions: Laparoscopic Cholecystectomy (DC) Follow Up With: Mariposa Ward CNP [Advanced Practice Nurse] - 05/11/18 9:30 am Ari Alaniz DO [Primary Care Provider] - (in 1-2 weeks) Additional Instructions: General Surgical Discharge Instructions 1. No pushing, pulling, or lifting greater than 15 lbs for 2-4 weeks (depending upon procedure). 2. You may shower beginning today, but no tub baths, soaking, or swimming for 2 weeks. 3. You may resume driving when you are off narcotics and are safe to react in a car. 4. Take ibuprofen every 8 hours for discomfort. If this does not relieve discomfort, you may take the as needed Percocet. Take narcotics as directed. Do not take more narcotics then directed and do not share your narcotics with any other person. Do not drink alcohol while on narcotics. 5. Take stool softeners (Colace) or a water based laxative (Miralax) while taking narcotics. You may hold for loose stools. 6. Report any fevers greater than 100.5F, increase abdominal discomfort, drainage that looks like pus, increased redness or pain at the surgical site, or any vomiting. 7. Report any pain in the calves, shortness of breath, or rapid heartbeat. 8. Follow-up in the office as directed. 9. If you were prescribed antibiotics, do not stop them without talking to your provider. - Diet and Activity Activity: increase activity as tolerated Diet: advance to your usual diet, low fat, low cholesterol, low salt diet
--- NOTE | 2018-04-27 10:38 | Event Note ---
Date of Encounter: 04/27/18 Time of Encounter: 10:37 Received call from shree Casey RN, the patient would like her prescriptions filled at [facility] pharmacy. Her prescriptions were originally sent to [facility] pharmacy electronically. Bedside RN to call [facility] to cancel prescriptions. New prescriptions have been electronically transferred to [place] pharmacy.
== END 2018-04-27 15:06 | disposition home or self-care (01) | DRG 263 ==
LOC: 2SOUTHHOLD 12:12 → EMEROOARM 12:12 → SUATTDRO 17:02 → 2SOUTHHOLD 18:34
PROVIDERS: ADMIT Internal Medicine; ATTEND Internal Medicine